=== PATIENT | female | born 1995 | race Caucasian/White ===

== ENCOUNTER 2020-10-06 08:31 | Emergency (ER) | payer SELFPAY ==
[~2020-10-06] VITALS: Ht 167 cm; Wt 176.0 kg
[~2020-10-06 08:31] MED LIST: FAMO-119 PO; HYDR-3455 PO; NORG1TAB14 PO
[2020-10-06] MEDS ORDERED: FAMOTIDINE 20MG/2ML IV (PEPCID) IV STA (08:59)
[2020-10-06] MEDS ORDERED: LACTATED RINGERS 1,000 ML IV ONE (09:00)
[2020-10-06] MEDS ORDERED: ONDANSETRON 4 MG/2 ML (SDV) Z0FRAN IVP ONE (09:00)
[2020-10-06 09:17] LABS: BASOPHILS % (AUTO) 1 % (0-10); EOSINOPHILS # (AUTO) 0.1 10^3/uL (0.0-0.3); EOSINOPHILS % (AUTO) 2 % (0-10); HEMATOCRIT 41 % (35-52); HEMOGLOBIN 13.2 g/dL (11.5-16.0); LYMPHOCYTES # (AUTO) 1.5 10^3/uL (1.0-4.0); LYMPHOCYTES % (AUTO) 24 % (12-44); MEAN CORPUSCULAR HEMOGLOBIN 27 pg (25-34); MEAN CORPUSCULAR HGB CONC 32 g/dL (32-36); MEAN CORPUSCULAR VOLUME 82 fL (80-99); MEAN PLATELET VOLUME 9.6 fL (9.0-12.2); MONOCYTES # (AUTO) 0.5 10^3/uL (0.0-1.0); MONOCYTES % (AUTO) 8 % (0-12); NEUTROPHILS # (AUTO) 3.9 10^3/uL (1.8-7.8); NEUTROPHILS % (AUTO) 65 % (42-75); PLATELET COUNT 346 10^3/uL (130-400)
--- NOTE | 2020-10-06 09:19 | ED General ---
General Chief Complaint: Glucose Problems Stated Complaint: POSSIBLE KETOACIDOSIS Source of Information: Patient Exam Limitations: No Limitations (WILLIAM VEGA MED STUDENT) History of Present Illness Date Seen by Provider: Oct 06, 2020 Time Seen by Provider: 08:40 Initial Comments Patient is a 25 year old female who presents today with complaints of nausea, vomiting, and diarrhea that began yesterday morning. She was seen at [facility] this morning and advised to go to the ED after a fingerstick glucose of 235, an HgA1C of 9.6, and a urine positive for ketones. She also admits to moderate 4/10 epigastric abdominal pain. Recent sick contacts include a child in the home. She admits to chills, decreased appetite, heartburn, polyuria and polydypsia. Denies fever, dysuria, hematemesis, blood in stool, chest pain, shortness of air. LMP 09/23/20 on OCP. Current DM medications include metformin 1000 BID. Timing/Duration: 1-2 Days Severity: Mild Modifying Factors: improves with Movement; worse with Rest Associated Systoms: No Chest Pain, No Cough; Headaches, Loss of Appetite, Nausea/Vomiting; No Rash, No Shortness of Air, No Weakness (WILLIAM VEGA MED STUDENT) Timing/Duration: 1-2 Days Associated Systoms: No Fever/Chills; Headaches, Nausea/Vomiting (CARLEEN MEYERS MD) Allergies and Home Medications Allergies Coded Allergies: No Known Drug Allergies (Unverified , 02/29/16) Home Medications Famotidine 20 Mg Tablet, 20 MG PO BID Prescribed by: FABIENNE BROWN MD on 02/13/16 0848 Hydrocodone/Acetaminophen 1 Each Tablet, 1 EACH PO Q4H PRN for ABDOMINAL PAIN Prescribed by: PAUL BULL on 03/02/16 0915 Norgestimate-Ethinyl Estradiol 1 Each Tablet, 1 EACH PO DAILY, (Reported) Patient Home Medication List Home Medication List Reviewed: Yes (WILLIAM VEGA MED STUDENT) Home Medication List Reviewed: Yes (CARLEEN MEYERS MD) Review of Systems Review of Systems Constitutional: chills; No fever Respiratory: No cough, No dyspnea on exertion Cardiovascular: No chest pain Gastrointestinal: abdominal pain (epigastric), diarrhea; No hematemesis; heartburn, loss of appetite; No melena; nausea, vomiting Genitourinary: No dysuria; frequency; No hesitancy Musculoskeletal: no symptoms reported Skin: no symptoms reported (WILLIAM VEGA MED STUDENT) Constitutional: No weakness EENTM: No nose congestion, No throat pain Respiratory: No dyspnea on exertion, No short of breath Gastrointestinal: diarrhea, nausea, vomiting (CARLEEN MEYERS MD) All Other Systems Reviewed Negative Unless Noted: Yes (CARLEEN MEYERS MD) Past Adyjscr-Sqszyh-Txmhvr Hx Past Med/Social Hx: Reviewed Nursing Past Med/Soc Hx (CARLEEN MEYERS MD) Patient Social History Alcohol Use: Occasionally Uses Smoking Status: Never a Smoker Recent Hopitalizations: No (WILLIAM VEGA MED STUDENT) Seasonal Allergies Seasonal Allergies: No (WILLIAM VEGA MED STUDENT) Past Medical History Surgeries: Yes Adenoidectomy, Gallbladder, Tonsillectomy Respiratory: No Cardiac: No Neurological: No Reproductive Disorders: No Female Reproductive Disorders: Denies Sexually Transmitted Disease: No HIV/AIDS: No Genitourinary: No Gastrointestinal: Yes Gastroesophageal Reflux, Ulcer, Gall Bladder Disease Musculoskeletal: No Endocrine: Yes (HYPOGLYCEMIA) HEENT: No Cancer: No Psychosocial: No Integumentary: No Blood Disorders: No Adverse Reaction/Blood Tranf: No (N/A) (WILLIAM VEGA MED STUDENT) Family Medical History Reviewed Nursing Family Hx (CARLEEN MEYERS MD) Physical Exam Vital Signs Vital Signs - First Documented 10/06/20 08:35 Temp 36.2 Pulse 118 Resp 18 B/P (MAP) 131/109 (116) (CARLEEN MEYERS MD) Vital Signs Capillary Refill : (WILLIAM VEGA MED STUDENT) Height, Weight, BMI Height: 5'6.00" Weight: 320lbs. 0.0oz. 145.501640mo; 53.24 BMI Method:Stated General Appearance: No Apparent Distress, WD/WN, Obese Eyes: Bilateral Eye PERRL, Bilateral Eye EOMI HEENT: Pharynx Normal, Moist Mucous Membranes Neck: Non Tender, Supple Respiratory: Lungs Clear, Normal Breath Sounds, No Accessory Muscle Use, No Respiratory Distress Cardiovascular: Regular Rate, Rhythm, No Edema, No Murmur Gastrointestinal: Normal Bowel Sounds, Soft; No Distended, No Guarding, No Rebound; Tenderness (mild epigastric), Other (negative heel tap, negative mcBurney point. negative psoas) Extremity: No Calf Tenderness, No Pedal Edema Neurologic/Psychiatric: Alert, Oriented x3, Normal Mood/Affect Skin: Normal Color, Warm/Dry Lymphatic: No Adenopathy (WILLIAM VEGA,MED STUDENT) General Appearance: No Apparent Distress, WD/WN HEENT: PERRL/EOMI, Pharynx Normal Neck: Non Tender, Supple Respiratory: Lungs Clear, Normal Breath Sounds Cardiovascular: Regular Rate, Rhythm, No Murmur Gastrointestinal: Normal Bowel Sounds, Soft, Tenderness (mild epigastric) Back: Normal Inspection, No CVA Tenderness, No Vertebral Tenderness Neurologic/Psychiatric: Alert, Oriented x3 Skin: Normal Color, Warm/Dry (CARLEEN MEYERS MD) Progress/Results/Core Measures Suspected Sepsis SIRS Temperature: Pulse: Respiratory Rate: Laboratory Tests 10/06/20 08:47: White Blood Count 6.0 Blood Pressure / Mean: Laboratory Tests 10/06/20 08:47: Platelet Count 346, Total Bilirubin 0.5 (WILLIAM VEGA,MED STUDENT) Results/Orders Lab Results Laboratory Tests Test 10/06/20 08:47 10/06/20 09:25 Range/Units White Blood Count 6.0 4.3-11.0 10^3/uL Red Blood Count 4.99 3.80-5.11 10^6/uL Hemoglobin 13.2 11.5-16.0 g/dL Hematocrit 41 35-52 % Mean Corpuscular Volume 82 80-99 fL Mean Corpuscular Hemoglobin 27 25-34 pg Mean Corpuscular Hemoglobin Concent 32 32-36 g/dL Red Cell Distribution Width 13.2 10.0-14.5 % Platelet Count 346 130-400 10^3/uL Mean Platelet Volume 9.6 9.0-12.2 fL Immature Granulocyte % (Auto) 1 % Neutrophils (%) (Auto) 65 42-75 % Lymphocytes (%) (Auto) 24 12-44 % Monocytes (%) (Auto) 8 0-12 % Eosinophils (%) (Auto) 2 0-10 % Basophils (%) (Auto) 1 0-10 % Neutrophils # (Auto) 3.9 1.8-7.8 10^3/uL Lymphocytes # (Auto) 1.5 1.0-4.0 10^3/uL Monocytes # (Auto) 0.5 0.0-1.0 10^3/uL Eosinophils # (Auto) 0.1 0.0-0.3 10^3/uL Basophils # (Auto) 0.0 0.0-0.1 10^3/uL Immature Granulocyte # (Auto) 0.0 0.0-0.1 10^3/uL Sodium Level 135 135-145 MMOL/L Potassium Level 3.5 L 3.6-5.0 MMOL/L Chloride Level 99 98-107 MMOL/L Carbon Dioxide Level 24 21-32 MMOL/L Anion Gap 12 5-14 MMOL/L Blood Urea Nitrogen 7 7-18 MG/DL Creatinine 0.82 0.60-1.30 MG/DL Estimat Glomerular Filtration Rate > 60 BUN/Creatinine Ratio 9 Glucose Level 214 H 70-105 MG/DL Calcium Level 8.8 8.5-10.1 MG/DL Corrected Calcium 8.6 8.5-10.1 MG/DL Magnesium Level 1.8 1.6-2.4 MG/DL Total Bilirubin 0.5 0.1-1.0 MG/DL Aspartate Amino Transf (AST/SGOT) 32 5-34 U/L Alanine Aminotransferase (ALT/SGPT) 49 0-55 U/L Alkaline Phosphatase 62 40-136 U/L C-Reactive Protein High Sensitivity 5.10 H 0.00-0.50 MG/DL Total Protein 8.0 6.4-8.2 GM/DL Albumin 4.2 3.2-4.5 GM/DL Urine Color YELLOW Urine Clarity CLEAR Urine pH 6.0 5-9 Urine Specific Blair 1.020 1.016-1.022 Urine Protein NEGATIVE NEGATIVE Urine Glucose (UA) NEGATIVE NEGATIVE Urine Ketones NEGATIVE NEGATIVE Urine Nitrite NEGATIVE NEGATIVE Urine Bilirubin NEGATIVE NEGATIVE Urine Urobilinogen 0.2 < = 1.0 MG/DL Urine Leukocyte Esterase 1+ H NEGATIVE Urine RBC (Auto) NEGATIVE NEGATIVE Urine RBC RARE /HPF Urine WBC 5-10 H /HPF Urine Squamous Epithelial Cells 25-50 H /HPF Urine Crystals PRESENT H /LPF Urine Amorphous Sediment MOD JAMEE URATES H /LPF Urine Bacteria MODERATE H /HPF Urine Casts NONE /LPF Urine Mucus MODERATE H /LPF Urine Culture Indicated YES (CARLEEN MEYERS MD) My Orders Orders - CARLEEN MEYERS MD Cbc With Automated Diff (10/06/20 08:59) Comprehensive Metabolic Panel (10/06/20 08:59) Hs C Reactive Protein (10/06/20 08:59) Ua Culture If Indicated (10/06/20 08:59) Ed Iv/Invasive Line Start (10/06/20 08:59) Lactated Ringers (Lr 1000 Ml Iv Solution (10/06/20 09:00) Ondansetron Injection (Zofran Injectio (10/06/20 09:00) Famotidine Injection (Pepcid Injection) (10/06/20 08:59) Magnesium (10/06/20 08:59) Urine Bedside (10/06/20 09:02) Ketorolac Injection (Toradol Injection) (10/06/20 09:37) Urine Culture (10/06/20 09:25) (CARLEEN MEYERS MD) Medications Given in ED Current Medications Medications Dose Ordered Sig/Horacio Route Start Time Stop Time Status Last Admin Dose Admin Lactated Ringer's 1,000 ml @ 0 mls/hr Q0M ONCE IV 10/06/20 09:00 10/06/20 09:01 DC 10/06/20 09:25 1,000 MLS/HR Ondansetron HCl 4 mg ONCE ONCE IVP 10/06/20 09:00 10/06/20 09:01 DC 10/06/20 09:27 4 MG (CARLEEN MEYERS MD) Vital Signs/I&O 10/06/20 08:35 Temp 36.2 Pulse 118 Resp 18 B/P (MAP) 131/109 (116) (CARLEEN MEYERS MD) Vital Signs/I&O Capillary Refill : (WILLIAM VEGA,MED STUDENT) Point of Care Testing Finger Stick Blood Glucose: 200 (WILLIAM VEGA,MED STUDENT) Progress Note : Progress Note I have seen and evaluated the patient and agree with above except as indicated. I have directed the plan of care. Patient is here with nausea and vomiting as well as some mild epigastric abdominal pain. Family member had similar a few days prior. Seen at clinic and apparently had ketones in her urine and they were worried about DKA as she is a type II diabetic. She does report some increased urination and is concerned about dehydration. Had a mild headache that has improved. Does have history of ulcers. Evaluation as above. Plan for IV, LR 1 L bolus, labs, UA, Zofran 4 mg IV and Pepcid 20 mg IV. We did add Toradol 30 mg IV. 1023: Overall doing much better. No significant finding on labs. Urine was contaminated but cultures pending. We will treat if culture is positive. I will write outpatient prescription for Zofran and give work note. Discharged home with return precautions. Patient verbalized understanding of instructions and agreement with plan. (CARLEEN MEYERS MD) Departure Impression Primary Impression: Epigastric abdominal pain Additional Impression: Nausea and vomiting Qualified Codes: R11.2 - Nausea with vomiting, unspecified Disposition: HOME, SELF-CARE Condition: Improved Departure-Patient Inst. Decision time for Depature: 10:25 (CARLEEN MEYRES MD) Referrals: NO,LOCAL PHYSICIAN (PCP/Family) Primary Care Physician Patient Instructions: Nausea and Vomiting, Adult (DC), Severe Abdominal Pain, Adult (DC) Add. Discharge Instructions: All discharge instructions reviewed with patient and/or family. Voiced understanding. Clear liquid or light diet for the next 24 hours and then advance as tolerated. Continue home medications as previously prescribed. Drink plenty of fluids by taking small sips frequently. Get plenty of rest. Return for worse pain, fever, vomiting, weakness, breathing problems or other concerns as needed. Scripts Ondansetron (Ondansetron Odt) 4 Mg Tab.rapdis 4 MG PO Q6H PRN for NAUSEA/VOMITING, #8 TAB 0 Refills Prov: CARLEEN MEYERS MD 10/06/20 Work/School Note: Work Release Form Date Seen in the Emergency Department: Oct 06, 2020 Return to Work: Oct 08, 2020 Restrictions: No Restrictions WILLIAM VEGA,MED STUDENT Oct 06, 2020 09:19 CARLEEN MEYERS MD Oct 06, 2020 10:25
[2020-10-06 09:22] LABS: ALBUMIN 4.2 GM/DL (3.2-4.5); CHLORIDE 99 MMOL/L (98-107); POTASSIUM 3.5 MMOL/L (3.6-5.0); SODIUM 135 MMOL/L (135-145)
[2020-10-06 09:23] LABS: CALCIUM 8.8 MG/DL (8.5-10.1)
[2020-10-06 09:24] LABS: GLUCOSE 214 MG/DL (70-105)
[2020-10-06 09:25] LABS: CARBON DIOXIDE 24 MMOL/L (21-32)
[2020-10-06 09:26] LABS: BILIRUBIN,TOTAL 0.5 MG/DL (0.1-1.0)
[2020-10-06 09:28] LABS: ALKALINE PHOSPHATASE 62 U/L (40-136); CREATININE SERUM 0.82 MG/DL (0.60-1.30); GFR ESTIMATED > 60
[2020-10-06 09:29] LABS: BUN/CREATININE RATIO 9
[2020-10-06 09:31] LABS: ALANINE AMINOTRANSFERASE 49 U/L (0-55)
[2020-10-06 09:32] LABS: MAGNESIUM 1.8 MG/DL (1.6-2.4)
[2020-10-06 09:33] LABS: BILIRUBIN,URINE NEGATIVE (NEGATIVE); CLARITY,URINE CLEAR; COLOR,URINE YELLOW; GLUCOSE, URINE (UA) NEGATIVE (NEGATIVE); KETONES,URINE NEGATIVE (NEGATIVE); LEUKOCYTE ESTERASE ,URINE 1+ (NEGATIVE); NITRITE,URINE NEGATIVE (NEGATIVE); PROTEIN,URINE NEGATIVE (NEGATIVE)
[2020-10-06] MEDS ORDERED: KETOROLAC 30 MG/ML VIAL IVP STA (09:37)
[2020-10-06 09:51] LABS: AMORPHOUS SEDIMENT,UR MOD AMOR URATES /LPF; BACTERIA,URINE MODERATE /HPF; RBC,URINE RARE /HPF; SQUAMOUS EPITHELIAL CELL,UR 25-50 /HPF
[2020-10-06] MEDS ORDERED: ONDA4TAB11 PO (10:27)
[2020-10-06 10:41] VITALS: BP 143/88
== END 2020-10-06 10:43 | disposition home or self-care (01) ==
LOC: EDUNIT# 08:31 → ER 08:33
DX: R10.13 Epigastric pain (principal); R11.2 Nausea with vomiting, unspecified; R35.0 Frequency of micturition; E11.9 Type 2 diabetes mellitus without complications; K21.9 Gastro-esophageal reflux disease without esophagitis; E66.9 Obesity, unspecified; Z68.43 Body mass index [BMI] 50.0-59.9, adult; Z79.84 Long term (current) use of oral hypoglycemic drugs
CPT/HCPCS: 36415; 80053; 81000; 82962; 83735; 84703; 85025; 86141; 87088